=== PATIENT | male | born 1990 | race Hispanic/Latino ===

== ENCOUNTER 2020-07-05 16:10 | Emergency (ER) | payer OTHER ==
[~2020-07-05] VITALS: Ht 165.1 cm; Wt 68.0 kg
--- OUTSIDE RECORDS SUMMARY | ~2020-07-05 | XMS | Encounter Summary ---
Demographics + + + | Address | [address] | | | [place] [address] | + + + | Home Phone | | + + + | Preferred Language | Unknown | + + + | Marital Status | | + + + | Restorationism Affiliation | Unknown | + + + | Race | Unknown | + + + | Ethnic Group | Unknown | + + + Author + + + | Author | [facility] | | | and [place] | + + + | Organization | [facility] | | | and [place] | + + + | Address | Unknown | + + + | Phone | Unavailable | + + + Support + + +---------+ + | Name | Relationship | Address | Phone | + + +---------+ + | Doug Chavez | ECON | Unknown | | + + +---------+ + Care Team Providers + +------+ + | Care Motor Vehicle Lecturer Name | Role | Phone | + +------+ + PCP | Unavailable | + +------+ + Encounter Details +--------+ + + + + | Date | Type | Department | Care Team | Description | +--------+ + + + + | 10/12/ | Hospital | [facility] | | | | 2011 | Encounter | MED [facility] | | | | | | [address] | | | | | | [place] | | | | | | [address] | | | | | | [phone] | | | +--------+ + + + + Social History + +-------+ +--------+------+ | Tobacco Use | Types | Packs/Day | Years | Date | | | | | Used | | + +-------+ +--------+------+ | Never Assessed | | | | | + +-------+ +--------+------+ + + + | Sex Assigned at | Date Recorded | | | | + + + | Not on file | | + + + documented as of this encounter Miscellaneous Notes Op Note - Kye Lowe MD - 10/12/2011 10:29 AM PSTPatient Name: Claude Chavez Gender: M Procedure Date: 10/12/2011 12:45 PM Date of : 1990 Age: 21 Admit Type: Outpatient Room: Endo Room 2 Note Status: Finalized Attending MD: Kye Lowe MD Procedure: Colonoscopy Indications: Generalized abdominal pain Providers: Adriel Lowe MD, Jazmin Wood RN, Mary Kate Padron, Operating Manager, Anupam Nj MD (Anesthesia Staff) Referring MD: Meggan Sosa MD, Aliyah Townsend NP Medicines: IV General Anes thesia w/ Propofal Complications: No immediate complications. Estimated blo od loss: None. Procedure: - Prior to the procedure, a History and Physical was performed, and patient medications and allergies were reviewed. The risks and benefits of the procedure and the sedation options and risks were discussed with the patient. All questions were answered and informed consent was obtained. Patient identification and proposed procedure were verified by the physician, the nurse and the anesthesiologist in the procedure room. Mental Status Examination: alert and oriented. Airway Examination: Mallampati Class I (tonsillar pillars visualized). Respiratory Examination: clear to auscultation. CV Examination: normal. Prophylactic Antibiotics: The patient does not require prophylactic antibiotics. Prior Anticoagulants: The patient has taken no previous anticoagulant or antiplatelet agents. ASA Grade Assessment: II - A patient with mild systemic disease. After reviewing the risks and benefits, the patient was deemed in satisfactory condition to undergo the procedure. The anesthesia plan was to use general anesthesia. Immediately prior to administration of medications, the patient was re-assessed for adequacy to receive sedatives. The physical status of the patient was re-assessed after the procedure. After I obtained informed consent, the scope was passed under direct vision. Throughout the procedure, the patient's blood pressure, pulse, and oxygen saturations were monitored continuously. The endoscope was introduced through the anus and advanced to the terminal ileum, with identification of the appendiceal orifice and IC valve. The colonoscopy was performed without difficulty. The patient tolerated the procedure well. The quality of the bowel preparation was good. Findings: The terminal ileum appeared normal. The entire examined colon appeared normal on direct and retroflexion views. Impression: - The examined portion of the ileum was normal. - The entire examined colon is normal on direct and retroflexion views. Recommendatio n: - The patient will be observed post-procedure, until all discharge criteria are met. - Discharge patient to home (ambulatory). - Return to primary care physician as previously scheduled. Kye Lowe MD Signed Date: 10/12/2011 1:10 PM Number of Addenda: 0 Note initiated on 10/12/2011 12:47 PM Scope Withdrawal Time: 03 minutes 13 seconds Total Procedure Duration Time: 05 minutes 24 seconds <Electronically Signed by Kye Lowe MD> 10/12/11 1311 Op Note - Kye Lowe MD - 10/12/2011 10:29 AM PSTPatient Name: Claude Chavez Gender: Latoya Procedure Date: 10/12/2011 12:50 PM Date of : 1990 Age: 21 Admit Type: Outpatient Room: Endo Room 2 Note Status: Finalized Attending MD: Kye Lowe MD Procedure: Upper GI endoscopy Indications: Generalized abdominal pain Providers: Adriel Lowe MD, Jazmin Wood RN, Mary Kate Padron, Operating Manager, Anupam Nj MD (Anesthesia Staff) Referring MD: Meggan Sosa MD, Aliyah Townsend NP Medicines: IV General Anes thesia w/ Propofal Complications: No immediate complications. Estimated blo od loss: None. Procedure: - Prior to the procedure, a History and Physical was performed, and patient medications and allergies were reviewed. The risks and benefits of the procedure and the sedation options and risks were discussed with the patient. All questions were answered and informed consent was obtained. Patient identification and proposed procedure were verified by the physician, the nurse and the anesthesiologist in the procedure room. Mental Status Examination: alert and oriented. Airway Examination: Mallampati Class I (tonsillar pillars visualized). Respiratory Examination: clear to auscultation. CV Examination: normal. Prophylactic Antibiotics: The patient does not require prophylactic antibiotics. Prior Anticoagulants: The patient has taken no previous anticoagulant or antiplatelet agents. ASA Grade Assessment: II - A patient with mild systemic disease. After reviewing the risks and benefits, the patient was deemed in satisfactory condition to undergo the procedure. The anesthesia plan was to use general anesthesia. Immediately prior to administration of medications, the patient was re-assessed for adequacy to receive sedatives. The physical status of the patient was re-assessed after the procedure. After obtaining informed consent, the endoscope was passed under direct vision. Throughout the procedure, the patient's blood pressure, pulse, and oxygen saturations were monitored continuously. The endoscope was introduced through the mouth, and advanced to the second part of duodenum. The upper GI endoscopy was accomplished without difficulty. The patient tolerated the procedure well. Findings: The examined esophagus was normal. Localized mildly erythematous mucosa with no bleeding was found in the gastric antrum. Biopsies were taken with a cold forceps for histology. The examined duodenum was normal. Impression: - Normal esophagus. - Gastric mucosal abnormality characterized by erythema. This was biopsied. - Normal examined duodenum. Recommendation: - The patient will be observed post-procedure, until all discharge criteria are met. - Discharge patient to home (ambulatory). - Await pathology results. - Perform a colonoscopy today. - Use a proton pump inhibitor PO daily for 3 months. - Follow an antireflux regimen indefinitely. - Return to referring physician after studies are complete. Kye Lowe MD Signed Date: 10/12/2011 1:00 PM Number of Addenda: 0 Note initiated on 10/12/2011 12:48 PM Scope Withdrawal Time: N/A Total Procedure Duration Time: 01 minute 50 seconds <Electronically Signed by Kye Lowe MD> 10/12/11 1300 documented in this encounter Plan of Treatment Not on filedocumented as of this encounter Visit Diagnoses Not on filedocumented in this encounter"
--- OUTSIDE RECORDS SUMMARY | ~2020-07-05 | XMS | Clinical Summary ---
Demographics + + + | Address | [address] | | | [place] [address] | + + + | Home Phone | | + + + | Preferred Language | Unknown | + + + | Marital Status | | + + + | Baptism Affiliation | Unknown | + + + | Race | Unknown | + + + | Ethnic Group | Unknown | + + + Author + + + | Author | [facility] | | | and [place] | + + + | Organization | [facility] | | | and [...] Team Providers + +------+ + | Care Tie Puller Name | Role | Phone | + +------+ + PCP | Unavailable | + +------+ + Allergies No Known Allergies Medications + + + +---------+------+------+-------+ | Medication | Sig | Dispensed | Refills | Star | End | Statu | | | | | | t | Date | s | | | | | | Date | | | + + + +---------+------+------+-------+ | ondansetron | Take 1 to 2 tablets | | 0 | 09/1 | | Activ | | (ZOFRAN) 4 mg tablet | by mouth every 8 | | | 4/20 | | e | | | hours as needed for | | | 12 | | | | | nausea and vomiting | | | | | | + + + +---------+------+------+-------+ | metoclopramide | Take 1 tablet by | | 0 | 09/1 | | Activ | | (REGLAN) 10 mg | mouth four times a | | | 4/20 | | e | | tablet | day: one half before | | | 12 | | | | | meals and at | | | | | | | | bedtime | | | | | | + + + +---------+------+------+-------+ | lansoprazole | Take 1 capsule by | | 0 | 09/1 | | Activ | | (PREVACID) [address] | mouth daily on empty | | | 4/20 | | e | | capsule | stomach in the | | | 12 | | | | | morning | | | | | | + + + +---------+------+------+-------+ | acetaminophen | Take 1 to 2 tablets | | 0 | 09/1 | | Activ | | (TYLENOL ARTHRITIS | by mouth by mouth | | | 4/20 | | e | | PAIN) 650 MG CR | every 8 hours as | | | 12 | | | | tablet | needed for pain | | | | | | + + + +---------+------+------+-------+ | hyoscyamine | 1 to 2 tablets under | | 0 | 09/1 | | Activ | | (HYOMAX) 0.125 MG | the tongue as | | | 4/20 | | e | | tablet | needed | | | 12 | | | + + + +---------+------+------+-------+ | promethazine | Take 25 mg by mouth | | 0 | 09/1 | | Activ | | (PHENERGAN) 25 mg | every 6 hours. | | | 4/20 | | e | | tablet | | | | 12 | | | + + + +---------+------+------+-------+ | | Take 1 tablet by | | 0 | 10/0 | | Activ | | HYDROcodone-acetamin | mouth every 4 hours | | | 8/20 | | e | | ophen 5-500 mg TABS | as needed for pain | | | 12 | | | | tablet (ED prepack) | | | | | | | + + + +---------+------+------+-------+ | omeprazole | Take 1 capsule by | | 0 | 10/0 | | Activ | | (PRILOSEC) 20 mg | mouth daily | | | 8/20 | | e | | capsule | | | | 12 | | | + + + +---------+------+------+-------+ | sucralfate | Take 1 tablet by | | 0 | 10/0 | | Activ | | (CARAFATE) 1 g | mouth twice daily | | | 8/20 | | e | | tablet | | | | 12 | | | + + + +---------+------+------+-------+ Active Problems + + + | Problem | Noted Date | + + + | ABDOMINAL PAIN, GENERALIZED | 09/27/2011 | + + + | HEMOCCULT POSITIVE STOOL | 09/27/2011 | + + + | HEARTBURN | 09/27/2011 | + + + | GASTROESOPHAGEAL REFLUX DISEASE | | + + + | ACUTE GASTRITIS WITH HEMORRHAGE | | + + + | CHEST PAIN | | + + + Social History + +-------+ [...] on file | | + + + Last Filed Vital Signs + + + + + | Vital Sign | Reading | Time Taken | Comments | + + + + + | Blood Pressure | 136/78 | 03/25/2012 12:00 AM | | | | | PDT | | + + + + + | Pulse | - | - | | + + + + + | Temperature | - | - | | + + + + + | Respiratory Rate | - | - | | + + + + + | Oxygen Saturation | - | - | | + + + + + | Inhaled Oxygen | - | - | | | Concentration | | | | + + + + + | Weight | 86.2 kg (190 lb) | 03/25/2012 12:00 AM | | | | | PDT | | + + + + + | Height | 174 cm (5' 8.5") | 09/27/2011 12:00 AM | | | | | PST | | + + + + + | Body Mass Index | 28.47 | 09/27/2011 12:00 AM | | | | | PST | | + + + + + Plan of Treatment + + +-------+ + | Health Maintenance | Due Date | Last | Comments | | | | Done | | + + +-------+ + | Vaccine: | | | | | Dtap/Tdap/Td (1 - | 9 | | | | Tdap) | | | | + + +-------+ + | Vaccine: Influenza | | | | | (#1) | 0 | | | + + +-------+ + Results Not on filefrom Last 3 Months
--- OUTSIDE RECORDS SUMMARY | ~2020-07-05 | XMS | Encounter Summary ---
Demographics + + + | Address | [address] | | | [place] [address] | + + + | Home Phone | | + + + | Preferred Language | Unknown | + + + | Marital Status | | + + + | Tenriism Affiliation | Unknown | + + + | Race | Unknown | + + + | Ethnic Group | Unknown | + + + Author + + + | Author | [facility] | | | and [place] | + + + | Organization | [facility] | | | [...] Team Providers + +------+ + | Care Sludge Control Operator Name | Role | Phone | + +------+ + PCP | Unavailable | + +------+ + Encounter Details +--------+ + + + + | Date | Type | Department | Care Team | Description | +--------+ + + + + | 07/07/ | Abstract | [facility] | Provider, | | | 2011 | | Anti-Coagulation | MD [address] | | | | | Clinic | [address] | | | | | | [place] [address] | | +--------+ + + + + [...] + + documented as of this encounter Plan of Treatment Not on filedocumented as of this encounter Visit Diagnoses Not on filedocumented in this encounter"
--- OUTSIDE RECORDS SUMMARY | ~2020-07-05 | XMS | Encounter Summary ---
Demographics + + + | Address | [address] | | | [place] [address] | + + + | Home Phone | | + + + | Preferred Language | Unknown | + + + | Marital Status | | + + + | Rastafari Affiliation | Unknown | + + + | Race | Unknown | + + + | Ethnic Group | Unknown | + + + Author + + + | Author | [facility] | | | and [place] | + + + | Organization | [facility] | | | and [...] Team Providers + +------+ + | Care Field Artillery Operations Specialist Name | Role | Phone | + +------+ + PCP | Unavailable | + +------+ + Encounter Details +--------+ + + + + | Date | Type | Department | Care Team | Description | +--------+ + + + + | 09/27/ | Hospital | [facility] | [facility] | | | 2010 | Encounter | MED CTR LABORATORY | [address] | | | | | [address] | [address] | | | | | [place] | [place] | | | | | [address] | [id number] | | | | | [phone] | | | +--------+ + + + [...] Not on filedocumented as of this encounter Procedures + +--------+ + + + | Procedure Name | Priori | Date/Time | Associated Diagnosis | Comments | | | ty | | | | + +--------+ + + + | CELIAC PANEL, IGA | Routin | 09/27/2011 | | Results for this | | AND IGG | e | 9:45 AM | | procedure are in the | | | | PST | | results section. | + +--------+ + + + | SEDIMENTATION RATE | Routin | 09/27/2011 | | Results for this | | | e | 9:45 AM | | procedure are in the | | | | PST | | results section. | + +--------+ + + + | C-REACTIVE PROTEIN | Routin | 09/27/2011 | | Results for this | | | e | 9:45 AM | | procedure are in the | | | | PST | | results section. | + +--------+ + + + documented in this encounter Results Celiac Panel, IgA and IgG (09/27/2011 9:45 AM PST) + + + + + + | Component | Value | Ref Range | Performed | Pathologist | | | | | At | Signature | + + + + + + | Tissue | <1.2Comment: Negative | <4.0 U/mL | [facility] | | | Transglutam | < 4.0 Equivocal | | [facility] | | | inase IgA | 4.0 to 10.0 | | MEDICAL | | | | Positive >10.0 | | CENTER - | | | | Testing Performed: | | LABORATORY | | | | [facility], [address], | | | | | | [place] [address] | | | | | | CLIA: [id number] | | | | + + + + + + | Tissue | <1.2Comment: Negative | 0.0 - 5.9 U/mL | [facility] | | | Transglutam | < 6.0 Equivocal | | [facility] | | | inase IgG | 6.0 to 9.0 Positive | | MEDICAL | | | | >9.0 tTG | | CENTER - | | | | antibody, especially | | LABORATORY | | | | IgA, is sensitive and | | | | | | specific for untreated | | | | | | Celiac Disease. Levels | | | | | | can decrease | | | | | | significantly in | | | | | | response to a gluten | | | | | | free diet. The IgG assay | | | | | | is used mainly to | | | | | | detect celiac patients | | | | | | who are IgA deficient. | | | | | | Testing Performed: | | | | | | [facility], [address], | | | | | | [place] [address] | | | | | | CLIA: [id number] | | | | + + + + + + + + | Specimen | + + | | + + + + + + + | Performing | Address | City/State/Zipcode | Phone Number | | Organization | | | | + + + + + | [facility] | [address] | [place] | [phone] | | [facility] | | [address] | | | - LABORATORY | | | | + + + + + | [facility] | [address] | [place] | | | [facility] | | [address] | | | - LABORATORY | | | | + + + + + C-Reactive Protein (09/27/2011 9:45 AM PST) + + + + + + | Component | Value | Ref Range | Performed | Pathologist | | | | | At | Signature | + + + + + + | CRP | 0.70Comment: Levels >8.0 | <8.0 mg/L | [facility] | | | | mg/L indicate possible | | [facility] | | | | infection, trauma, | | MEDICAL | | | | cardiac infarct or | | CENTER - | | | | neoplastic | | LABORATORY | | | | proliferation. | | | | + + + + + + + + | Specimen | + + | | + + + + + + + | Performing | Address | City/State/Zipcode | Phone Number | | Organization | | | | + + + + + | [facility] | [address] | [place], [place] | [phone] | | [facility] | | [address] | | | - LABORATORY | | | | + + + + + | [facility] | [address] | [place] | | | [facility] | | [address] | | | - LABORATORY | | | | + + + + + Sedimentation Rate (09/27/2011 9:45 AM PST) + +-------+ + + + | Component | Value | Ref Range | Performed | Pathologist | | | | | At | Signature | + +-------+ + + + | Erythrocyte | 4 | 0 - 15 mm/hr | [facility] | | | | | | [facility] | | | Sedimentati | | | MEDICAL | | | on Rate | | | CENTER - | | | | | | LABORATORY | | + +-------+ + + + + + | Specimen | + + | | + + + + + + + | Performing | Address | City/State/Zipcode | Phone Number | | Organization | | | | + + + + + | [facility] | [address] | [place], [place] | [phone] | | [facility] | | [address] | | | - LABORATORY | | | | + + + + + | [facility] | [address] | [place], [place] | | | [facility] | | [id number] [place] [address] | | | - LABORATORY | | | | + + + + + documented in this encounter Visit Diagnoses Not on filedocumented in this encounter"
--- OUTSIDE RECORDS SUMMARY | ~2020-07-05 | XMS | Encounter Summary ---
Demographics + + + | Address | [address] | | | [place] [address] | + + + | Home Phone | | + + + | Preferred Language | Unknown | + + + | Marital Status | | + + + | Amish Affiliation | Unknown | + + + | Race | Unknown | + + + | Ethnic Group | Unknown | + + + Author + + + | Author | [facility] | | | and [place] | + + + | Organization | [facility] | | | [...] Team Providers + +------+ + | Care Economic Consultant Name | Role | Phone | + +------+ + PCP | Unavailable | + +------+ + Encounter Details +--------+ + + + + | Date | Type | Department | Care Team | Description | +--------+ + + + + | 06/12/ | Abstract | [place] [facility] | [facility] | | | 2011 | | Conversion Location | SR | | | | | [address] | | | | | | [place], [place] | | | | | | [address] | | | | | | [phone] | | | +--------+ + + + [...] + + documented as of this encounter Last Filed Vital Signs + + + [...] + + + documented in this encounter Plan of Treatment Not on filedocumented as of this encounter Procedures + +--------+ + + + | Procedure Name | Priori | Date/Time | Associated Diagnosis | Comments | | | ty | | | | + +--------+ + + + | ENDOSCOPY, COLON, | Routin | 10/12/2011 | | Results for this | | DIAGNOSTIC | e | 12:00 AM | | procedure are in the | | | | PST | | results section. | + +--------+ + + + documented in this encounter Results ENDOSCOPY, COLON, DIAGNOSTIC (10/12/2011 12:00 AM PST) + + | Specimen | + + | | + + + + + | Narrative | Performed At | + + + | | | + + + documented in this encounter Visit Diagnoses Not on filedocumented in this encounter
--- OUTSIDE RECORDS SUMMARY | 2020-07-05 16:14 | XMS ---
PreManage Notification: LELE ROYAL Security Freelance Photographer Events No recent Security Events currently on file [facility] There are no care providers on record at this time. Brian has no Care Guidelines for this patient. Isai VISIT COUNT (12 MO.) 1 WILMA Rodriguez TOTAL 1 NOTE: Visits indicate total known visits. ED/C VISIT TRACKING (12 MO.) 07/05/2020 16:11 [facility] [place] TYPE: Emergency COMPLAINT: - L HAND POST OP PROBLEM INPATIENT VISIT TRACKING (12 MO.) No inpatient visits to display in this time frame [id number]
== END 2020-07-05 17:45 | disposition home or self-care (01) ==
LOC: ED 16:10
DX: Z53.21 Procedure and treatment not carried out due to patient leaving prior to being seen by health care provider (principal)